=== PATIENT | male | born 1945 | race Hispanic/Latino ===

== ENCOUNTER → 2023-04-20 | Outpatient (REF) | payer MEDICARE ==
[~2023-04-20] MED LIST: ASPIRIN81 MG PO; EZETIMIBE10 MG PO; HUMALOG MI100 UNIT/2 SQ; LANTUS 3ML100 UNITS/; LOSARTAN POTAS100 MG PO
== END ==
LOC: RAD 11:39
PROVIDERS: ATTEND Physician Assistant
DX: M79.662 Pain in left lower leg (principal); M79.89 Other specified soft tissue disorders; Z47.1 Aftercare following joint replacement surgery; Z96.652 Presence of left artificial knee joint
CPT/HCPCS: 93971